=== PATIENT | male | born 1980 ===

== ENCOUNTER 2017-08-16 21:46 | Emergency (ER) | payer SELFPAY ==
[2017-08-16 21:59] VITALS: BP 119/83; PULSE 92; RESP 20; TEMP 98.5; O2SAT 96
[2017-08-16] MEDS ORDERED: Naproxen 550 mg Tab PO STA (22:30)
--- NOTE | 2017-08-16 22:42 | C.PDOC ---
History Of Present Illness 37 yo male c/o dental pain since this morning. Pt notes that his tooth has been cracked for a year but this morning it started bothering him. Has been taking Tylenol without relief. No fever, difficulty breathing, difficultly swallowing. Has not seen a dentist. Time Seen by Provider: 08/16/17 22:11 Chief Complaint (Nursing): Dental Pain History Per: Patient History/Exam Limitations: no limitations Onset/Duration Of Symptoms: Hrs Current Symptoms Are (Timing): Still Present Past Medical History Vital Signs: Last Vital Signs Temp 98.5 F 08/16/17 21:56 Pulse 92 H 08/16/17 21:56 Resp 20 08/16/17 23:07 BP 119/83 08/16/17 21:56 Pulse Ox 96 08/16/17 22:42 Family History: States: Unknown Family Hx - Social History Hx Alcohol Use: No Hx Substance Use: No - Immunization History Hx Tetanus Toxoid Vaccination: No Hx Influenza Vaccination: No Hx Pneumococcal Vaccination: No Review Of Systems Except As Marked, All Systems Reviewed And Found Negative. Constitutional: Positive for: Chills. Negative for: Fever ENT: Positive for: Mouth Pain Respiratory: Negative for: Cough, Shortness of Breath Physical Exam - Physical Exam Appears: Well, Non-toxic, No Acute Distress (pt is sleeping upon initial examination) Skin: Normal Color, Warm, Dry Head: Atraumatic, Normacephalic Eye(s): bilateral: Normal Inspection, EOMI Nose: Normal Oral Mucosa: Moist Teeth: Caries, Tender To Palpation ((+) left maxillary molar) Gingiva: No Swelling, No Tender, No Abscess Throat: Normal Neck: Normal, Normal ROM, Supple Chest: Symmetrical Cardiovascular: Rhythm Regular Respiratory: Normal Breath Sounds Back: Normal Inspection Extremity: Normal ROM Neurological/Psych: Oriented x3, Normal Speech ED Course And Treatment O2 Sat by Pulse Oximetry: 96 Progress Note: Naprosyn and amoxicillin ordered. Instructed to follow up with dentist in 1-2 days. Disposition - Disposition Referrals: [facility] [place] [Outside] Disposition: HOME/ ROUTINE Disposition Time: 22:41 Condition: STABLE Additional Instructions: Follow up with your dentist in 2-5 days for further evaluation. Take medications as prescribed. Return to the emergency department at any time if symptoms persist or worsen. Prescriptions: Amoxicillin 875 mg PO BID #14 tablet Naproxen [Naprosyn] 1 tab PO BID PRN #20 tab PRN Reason: Pain Instructions: Toothache (ED) Forms: [facility] [facility] ([place]) - Clinical Impression Clinical Impression: Toothache
[2017-08-16] MEDS ORDERED: Naproxen 550 mg Tab PO ONE (22:46)
== END 2017-08-16 23:07 | disposition home or self-care (01) ==
LOC: C.ER 21:46
DX: K08.89 Other specified disorders of teeth and supporting structures (principal)